=== PATIENT | female | born 1985 | race Caucasian/White ===

== ENCOUNTER 2017-12-11 08:36 | Emergency (ER) | payer BC ==
[2017-12-11 08:42] VITALS: BP 131/97; PULSE 72; RESP 16; TEMP 98.1; O2SAT 98
--- NOTE | 2017-12-11 08:56 | EDPHY ---
H & P Stated Complaint: infected skin lesion face/saw derm yesterday rx abx Time Seen by Provider: 12/11/17 08:53 HPI/ROS: HPI: This is a 32-year-old female who presents with Chief Complaint: infected skin lesion face/saw derm yesterday rx abx Location: Left eyebrow Quality: Infected skin lesion Duration: 4 days Signs and Symptoms: No fever, no vision changes, no drainage, + erythema, + warmth, + swollen glands Timing: Gradually improving Severity: Mild Context: Patient is generally healthy, parked her eyebrows approximately 4 days ago and woke up 3 days ago with left eyebrow induration and periorbital swelling and redness. [facility] went [facility] 2 days ago and was given Doryx or doxycycline along with topical cortisone cream. She reports that symptoms were improving yesterday. She then woke up this morning had her red eyebrow and eye area had mild swelling and redness. Denies any fever/drainage/ visual changes/jaw swelling. She did note some lymph nodes that are swollen on the left side of her neck today. Modifying Factors: See above Comment: ROS: see HPI Constitutional: No fever, no chills, no weight loss Eyes: No blurred vision Respiratory: No shortness of breath, no cough Cardiovascular: No chest pain Gastrointestinal: No nausea, no vomiting, no diarrhea Genitourinary: No dysuria Extremities: No myalgias Neurologic: No weakness, no numbness Skin: No rashes Hematologic: No bruising, no bleeding MEDICAL/SURGICAL/SOCIAL HISTORY: Medical history: Generally healthy. Does not take any regular medications. Surgical history: Appendectomy, right knee surgery Social history: Employed. CONSTITUTIONAL: Extremely well-appearing adult white female, awake and alert, no obvious distress HEENT: Atraumatic and normocephalic, PERRL, EOMI. Tympanic membranes clear. Oropharynx clear, no exudate and moist pink mucosa. Airway patent. No lymphadenopathy. No meningismus. Cardiovascular: Normal S1/S2, regular rate, regular rhythm, without murmur rub or gallop. PULMONARY/CHEST: Symmetrical and nontender. Clear to auscultation bilaterally. Good air movement. No accessory muscle usage. ABDOMEN: Soft, nondistended, nontender, no rebound, no guarding, no peritoneal signs, no masses or organomegaly. No CVAT. EXTREMITIES: 2/2 pulses, strength 5/5, no deformities, no clubbing, no cyanosis or edema. NEUROLOGICAL: no focal neuro deficits. GCS 15. SKIN: Warm and dry, scabbed over area 1 mm in size medial to her left eyebrow sparing her ocular area; mild surrounding erythema; no fluctuance. no erythema. no rash. Good capillary refill. Source: Patient Exam Limitations: No limitations - Personal History LMP (Females 10-55): Extended Cycle BCP/Inj Current Tetanus/Diphtheria Vaccine: Unsure - Medical/Surgical History Hx Asthma: No Hx Chronic Respiratory Disease: No Hx Diabetes: No Hx Cardiac Disease: No Hx Renal Disease: No Hx Cirrhosis: No Hx Alcoholism: No Hx HIV/AIDS: No Hx Splenectomy or Spleen Trauma: No Other PMH: appy/r knee - Social History Smoking Status: Never smoked Constitutional: Initial Vital Signs Temperature (C) 36.7 C 12/11/17 08:38 Heart Rate 72 12/11/17 08:38 Respiratory Rate 16 12/11/17 08:38 Blood Pressure 131/97 H 12/11/17 08:38 O2 Sat (%) 98 12/11/17 08:38 O2 Delivery Mode Room Air Allergies/Adverse Reactions: No Known Allergies Allergy (Unverified 12/11/17 08:37) Home Medications: Medication Instructions Recorded Doryx 12/11/17 Microgestin 24 Fe 1 mg-20 Mcg 12/11/17 Sulfamethox/Tmp 800/160 mg 1 tab PO BID #14 tab 12/11/17 [Bactrim Ds] Medical Decision Making ED Course/Re-evaluation: No fluctuance to I and D. Slowly improving. Will add Bactrim for MRSA coverage. This patient was seen under the supervision of my secondary supervising physician. I evaluated care for this patient independently. Differential Diagnosis: Differential diagnosis includes but is not limited to cellulitis, MRSA, folliculitis. Departure - Departure Disposition: Home, Routine, Self-Care Clinical Impression: Cellulitis of eyebrow Condition: Good Instructions: Cellulitis (ED) Additional Instructions: Continue to take doxycycline 100 twice a day as well as hydrocortisone cream topically every 6 hr until fully healed. Start taking Bactrim twice a day x7 days. Apply ice to reduce swelling as needed. Take Tylenol 650 mg and/or ibuprofen 600 mg every 8 hr as needed for pain. Follow-up with Dermatology in 48-72 hours, if there is no improvement. Referrals: PCP Not In,Dictionary [Medical Doctor] - As per Instructions Prescriptions: Sulfamethox/Tmp 800/160 mg [Bactrim Ds] 1 tab PO BID #14 tab
== END 2017-12-11 09:12 | disposition home or self-care (01) ==
DX: L03.211 Cellulitis of face (principal)